=== PATIENT | male | born 1965 | race African-American/Black ===

== ENCOUNTER 2024-08-19 09:23 | Emergency (ER) | payer SELFPAY ==
[~2024-08-19] VITALS: Ht 180.3 cm; Wt 74.8 kg
[2024-08-19] MEDS: KETOROLAC 30MG/ML VIAL IM ONE (11:33)
[2024-08-19] MEDS: DEXAMETHASONE 10 MG/ML VIAL PO ONE (11:35)
[2024-08-19 11:44] VITALS: PULSE 90; RESP 20; O2SAT 99
[2024-08-19] MEDS: ALBUTEROL (0.083%) 2.5MG/3ML NEB HHN STA (11:44)
[2024-08-19 11:45] LABS: CLARITY URINE CLOUDY (CLEAR); COLOR URINE YELLOW (YELLOW); GLUCOSE URINE NEGATIVE (NEGATIVE); KETONES URINE TRACE (NEGATIVE); LEUKOCYTE ESTERASE URINE 3+ (NEGATIVE); NITRITE URINE NEGATIVE (NEGATIVE); OCCULT BLOOD URINE 2+ (NEGATIVE); PROTEIN URINE 1+ (NEGATIVE); SPECIFIC GRAVITY URINE 1.014 (1.005-1.030); UROBILINOGEN URINE 0.2 E.U./dL (0.2-1.0)
[2024-08-19] MEDS ORDERED: DOXY100C5 MT (11:58)
[2024-08-19 12:08] LABS: SQUAMOUS EPITHELIAL CELL URINE NONE SEEN /lpf (RARE/1+); WBC URINE 50-100 /hpf (0-2)
[2024-08-19 12:09] LABS: BACTERIA URINE 3+; RBC URINE 25-50 /hpf (0-2)
[2024-08-19] MEDS: CEFTRIAXONE SODIUM 500MG VIAL IM ONE (12:47)
[2024-08-19 13:06] VITALS: BP 136/73; PULSE 79; RESP 18; TEMP 36.28068; O2SAT 98
[2024-08-23 04:08] LABS: CHLAMYDIA TRACHOMATIS NAA Negative (Negative); NEISSERIA GONORRHOEAE NAA Negative (Negative)
== END 2024-08-19 13:07 | disposition home or self-care (01) ==
LOC: ER 09:23
DX: N45.1 Epididymitis (principal); J45.901 Unspecified asthma with (acute) exacerbation
CPT/HCPCS: 87491; 87591; 81003; 87086; 87186; 87077; 93976; 76870; 94640; 96372; 99285; J0696; J1100; J1885; Z7610 ×3

== ENCOUNTER 2024-11-07 13:30 | Emergency (ER) | payer MEDICAID ==
[~2024-11-07] VITALS: Ht 195.6 cm; Wt 68.0 kg
[~2024-11-07 13:30] MED LIST: DOXY100C5 MT
[2024-11-07 14:01] VITALS: O2SAT 97
[2024-11-07] MEDS: KETOROLAC 30MG/ML VIAL IM ONE (17:11)
[2024-11-07] MEDS: PREDNISONE 20MG TABLET PO ONE (17:11)
[2024-11-07] MEDS: CYCLOBENZAPRINE 10MG TABLET PO ONE (17:11)
[2024-11-07 17:32] VITALS: PULSE 107; RESP 18
[2024-11-07] MEDS: ALBUTEROL (0.083%) 2.5MG/3ML NEB HHN ONE ×2 (17:32→18:37)
[2024-11-07] MEDS ORDERED: MELO-104 MT (18:56)
[2024-11-07] MEDS ORDERED: P50 MT (18:56)
[2024-11-07] MEDS ORDERED: ALBU18HF2 IH (18:56)
[2024-11-07 19:35] VITALS: BP 139/88; PULSE 87; RESP 18; TEMP 36.78072; O2SAT 99
== END 2024-11-07 19:39 | disposition home or self-care (01) ==
LOC: ER 13:30
DX: S16.1XXA Strain of muscle, fascia and tendon at neck level, initial encounter (principal); M25.552 Pain in left hip; M25.551 Pain in right hip; J45.901 Unspecified asthma with (acute) exacerbation; M19.90 Unspecified osteoarthritis, unspecified site; X58.XXXA Exposure to other specified factors, initial encounter; Y93.89 Activity, other specified; Y92.89 Other specified places as the place of occurrence of the external cause; Y99.8 Other external cause status
CPT/HCPCS: 73522; 71045; 94640; 94070; 96372; 99285; J7512; J1885; Z7610 ×3

== ENCOUNTER 2025-06-26 11:26 | Emergency (ER) | payer MEDICAID ==
[~2025-06-26] VITALS: Ht 180.3 cm; Wt 80.0 kg
[~2025-06-26 11:26] MED LIST changes: +ALBU18HF2 IH; +MELO-104 MT; +P50 MT
[2025-06-26 11:42] VITALS: O2SAT 99
[2025-06-26] MEDS ORDERED: ALBU18HF2 IH (12:48)
[2025-06-26] MEDS ORDERED: P20 PO (12:48)
[2025-06-26] MEDS: PREDNISONE 20MG TABLET PO ONE (12:53)
[2025-06-26 13:07] LABS: CLARITY URINE CLEAR (CLEAR); COLOR URINE YELLOW (YELLOW); GLUCOSE URINE NEGATIVE (NEGATIVE); KETONES URINE NEGATIVE (NEGATIVE); LEUKOCYTE ESTERASE URINE NEGATIVE (NEGATIVE); NITRITE URINE NEGATIVE (NEGATIVE); OCCULT BLOOD URINE NEGATIVE (NEGATIVE); PH URINE 7.0 (4.5-8.0); PROTEIN URINE NEGATIVE (NEGATIVE); SPECIFIC GRAVITY URINE 1.021 (1.005-1.030); UROBILINOGEN URINE 0.2 E.U./dL (0.2-1.0)
[2025-06-26 13:08] VITALS: BP 136/73; PULSE 74; RESP 18; TEMP 37; O2SAT 100
== END 2025-06-26 13:08 | disposition home or self-care (01) ==
LOC: ER 11:26
DX: J45.901 Unspecified asthma with (acute) exacerbation (principal); I10 Essential (primary) hypertension; A64 Unspecified sexually transmitted disease; Z79.1 Long term (current) use of non-steroidal anti-inflammatories (NSAID); Z79.52 Long term (current) use of systemic steroids; Z79.899 Other long term (current) drug therapy
CPT/HCPCS: 99283; 87491; 87591; 81003; J7512